=== PATIENT | female | born 1995 | race Two or more races ===

== ENCOUNTER 2020-04-08 12:40 | Emergency (ER) | payer OTHER ==
[~2020-04-08] VITALS: Ht 167.6 cm; Wt 90.9 kg
[2020-04-08 13:56] LABS: BASO % 0 % (0-3); EOS % 0 % (0-3); HEMATOCRIT 47.1 % (36.0-47.0); HEMOGLOBIN 15.2 g/dL (12.0-15.5); LYMPH # 1.3 x10^3/uL (1.0-4.8); LYMPH % 18 % (24-48); MEAN CORPUSCULAR HEMOGLOBIN 26 pg (25-35); MEAN CORPUSCULAR HGB CONC 32 g/dL (31-37); MEAN CORPUSCULAR VOLUME 81 fL (79-100); MONO # 0.3 x10^3/uL (0.0-1.1); MONO % 4 % (0-9); NEUT # 5.7 x10^3uL (1.8-7.7); NEUT % 79 % (31-73); PLATELET COUNT 215 x10^3/uL (140-400); RED BLOOD COUNT 5.79 x10^6/uL (3.50-5.40); RED CELL DISTRIBUTION WIDTH 14.8 % (11.5-14.5); WHITE BLOOD COUNT 7.2 x10^3/uL (4.0-11.0)
--- NOTE | 2020-04-08 13:56 | RAD ---
INDICATION: Reason: covid, soa / Spl. Instructions: / History: COMPARISON: None. FINDINGS: Single view of chest obtained. Cardiac silhouette is unremarkable. No focal airspace consolidation or pulmonary edema. IMPRESSION: * No focal airspace consolidation. Electronically signed by: Ryan Palacio MD (04/08/2020 1:53 PM) [id number]
--- NOTE | 2020-04-08 14:03 | PHYS DOC ---
Adult General Chief Complaint Chief Complaint: SHORTNESS OF BREATH HPI HPI Patient is a 25 year old female who presents with shortness of breath. Patient states she tested positive for the COVID-19 virus on March 31, patient states that she had generalized body aches with loss of smell and loss of taste but started feeling much better approximately 2 days ago. Patient states that this morning when she woke up from bed at approximately 930 this morning she stood up and immediately passed out, patient believes she was only unconscious for less than a minute stating her helped her back up to sit on the bed. Patient also noticed that she shortness of breath and had been unable to catch her breath. Patient states that when she took a deep breath she noticed some chest pain although her chest pain had resolved when she arrived to the emergency department today. Patient also states that this morning she noticed she had hives all over her body that were itching, she states she took 1 capsule of children's Benadryl prior to 10 AM today and did not notice any change in her hives. Patient states that she noticed her upper lip was swollen, but then resolved and noticed her lower lip was swollen when she came to the ER today. Patient denies any throat swelling, itching in her oral cavity, nasal congestio n, cough, denies chest pains at this time, still complains of loss of smell and loss of taste, denies abdominal pain, nausea, vomiting, diarrhea, or constipation. Patient denies any problems urinating, denies vaginal discharge, denies any STI concerns, patient states her last menstrual period was approximately 25 days ago, has had irregular periods since she had her Nexplanon removed 3 months ago. Patient denies headaches, swelling of her glands, depressions, anxieties, homicidal or suicidal ideations. Patient states that her had also tested positive on 31 March but his symptoms have since resolved, patient also states she has 2 young children 1 age 4 and 186 who are not showing any symptoms of the COVID-19 virus or other illnesses. (MADI ROTHMAN APRN) Review of Systems Review of Systems Constitutional: Denies fever or chills Eyes: Denies change in visual acuity, redness, or eye pain HENT: Denies nasal congestion or sore throat Respiratory: Denies cough, complains of shortness of breath. Cardiovascular: Complains of chest pain with deep inspiration that resolved prior to arrival to the ER today. GI: Denies abdominal pain, nausea, vomiting, constipation or diarrhea : Denies dysuria or hematuria, vaginal discharge, STI concerns. Musculoskeletal: Denies back pain or joint pain Integument: Complains of hives all over that itch. Neurologic: Denies headache, focal weakness. Complains of loss of smell and loss of taste. Psychiatric: Patient denies homicidal or suicidal ideation, denies depressions or anxieties. All other systems were reviewed and found to be within normal limits, except as documented in this note. (MADI ROTHMAN APRN) Family History Family History Patient states both her mother and her father are healthy, however she has a 19-year-old brother and a 21-year-old brother with a history of asthma. (MADI ROTHMAN APRN) Current Medications Current Medications Patient denies taking prescription medications. (MADI ROTHMAN APRN) Physical Exam Physical Exam Constitutional: Well developed, well nourished, no acute distress, non-toxic appearance. [] HENT: Normocephalic, atraumatic, bilateral external ears normal, oropharynx moist, no oral exudates, nose normal. [] Eyes: PERRLA, EOMI, conjunctiva normal, no discharge, pupils 4 mm Neck: Normal range of motion, no tenderness, supple, no stridor. [] Cardiovascular:Heart rate regular rhythm, no murmur, heart sounds S1-S2 to auscultation. Lungs & Thorax: Bilateral breath sounds clear to auscultation all lung parkinson. Abdomen: Bowel sounds normal, soft, no tenderness, no masses, no pulsatile masses. [] Skin: Warm, dry, no erythema, patient has urticarial lesions with complaints of pruritus generalized on the trunk and upper extremities with angioedema of the lower lip the urticarial lesions are raised, erythematous plaques with central pallor ranging in size of 1cm to 5 cm irregular cervical patterns without drainage. There are no open lesions of the skin. Back: No tenderness, no CVA tenderness. [] Extremities: No tenderness, no cyanosis, no clubbing, ROM intact, no edema. [] Neurologic: Alert and oriented X 3, normal motor function, normal sensory function, no focal deficits noted. [] Psychologic: Affect normal, judgement normal, mood normal. [] (MADI ROTHMAN APRN) Current Patient Data Lab Results Laboratory Tests Test 04/08/20 13:25 04/08/20 16:14 White Blood Count 7.2 x10^3/uL Red Blood Count 5.79 x10^6/uL Hemoglobin 15.2 g/dL Hematocrit 47.1 % Mean Corpuscular Volume 81 fL Mean Corpuscular Hemoglobin 26 pg Mean Corpuscular Hemoglobin Concent 32 g/dL Red Cell Distribution Width 14.8 % Platelet Count 215 x10^3/uL Neutrophils (%) (Auto) 79 % Lymphocytes (%) (Auto) 18 % Monocytes (%) (Auto) 4 % Eosinophils (%) (Auto) 0 % Basophils (%) (Auto) 0 % Neutrophils # (Auto) 5.7 x10^3uL Lymphocytes # (Auto) 1.3 x10^3/uL Monocytes # (Auto) 0.3 x10^3/uL Eosinophils # (Auto) 0.0 x10^3/uL Basophils # (Auto) 0.0 x10^3/uL Prothrombin Time 10.7 SEC Prothromb Time International Ratio 1.0 Activated Partial Thromboplast Time 25 SEC D-Dimer (Ragini) 7.40 mg/L Sodium Level 138 mmol/L Potassium Level 3.4 mmol/L Chloride Level 104 mmol/L Carbon Dioxide Level 22 mmol/L Anion Gap 12 Blood Urea Nitrogen 13 mg/dL Creatinine 0.8 mg/dL Estimated GFR (Cockcroft-Gault) 86.0 BUN/Creatinine Ratio 16 Glucose Level 119 mg/dL Lactic Acid Level 2.3 mmol/L Calcium Level 8.5 mg/dL Total Bilirubin 0.5 mg/dL Aspartate Amino Transf (AST/SGOT) 14 U/L Alanine Aminotransferase (ALT/SGPT) 18 U/L Alkaline Phosphatase 54 U/L Lactate Dehydrogenase 172 U/L Creatine Kinase 46 U/L Troponin I Quantitative < 0.017 ng/mL C-Reactive Protein 6.2 mg/L XT-Nog-H-Type Natriuretic Peptide 20 pg/mL Total Protein 7.0 g/dL Albumin 3.4 g/dL Albumin/Globulin Ratio 0.9 Lipase 47 U/L Serum Test, Qualitative Negative Urine Collection Type Unknown Urine Color Mary Urine Clarity Clear Urine pH 5.5 Urine Specific [place] 1.010 Urine Protein Neg Urine Glucose (UA) Neg mg/dL Urine Ketones (Stick) Neg mg/dL Urine Blood Trace Urine Nitrite Neg Urine Bilirubin Neg Urine Urobilinogen Dipstick 0.2 mg/dL Urine Leukocyte Esterase Neg Urine RBC 0 /HPF Urine WBC 0 /HPF Urine Squamous Epithelial Cells None /LPF Urine Bacteria 0 /HPF Current Medications Medications (Trade) Dose Ordered Sig/Amarjit Route PRN Reason Start Time Stop Time Status Last Admin Dose Admin Diphenhydramine HCl (Benadryl) 25 mg 1X ONCE IVP 04/08/20 14:30 04/08/20 14:33 DC 04/08/20 14:37 Sodium Chloride 1,000 ml @ 1,000 mls/hr 1X ONCE IV 04/08/20 14:30 04/08/20 15:29 DC 04/08/20 14:35 Dexamethasone Sodium Phosphate (Decadron) 10 mg 1X ONCE IV 04/08/20 14:30 04/08/20 14:33 DC 04/08/20 14:39 Famotidine (Pepcid Vial) 20 mg 1X ONCE IVP 04/08/20 14:30 04/08/20 14:33 DC 04/08/20 14:39 Enoxaparin Sodium (Lovenox 100mg Syringe) 90 mg 1X ONCE SQ 04/08/20 14:50 04/08/20 14:51 DC 04/08/20 15:06 Iohexol (Omnipaque 350 Mg/ml) 100 ml 1X ONCE IV 04/08/20 15:00 04/08/20 15:01 DC 04/08/20 15:12 Info (Do NOT chart on this entry -- for MONITORING) 1 each PRN DAILY PRN MC SEE COMMENTS 04/08/20 15:00 04/10/20 14:59 Laboratory Tests Test 04/08/20 13:25 White Blood Count 7.2 x10^3/uL (4.0-11.0) Red Blood Count 5.79 x10^6/uL (3.50-5.40) H Hemoglobin 15.2 g/dL (12.0-15.5) Hematocrit 47.1 % (36.0-47.0) H Mean Corpuscular Volume 81 fL (79-100) Mean Corpuscular Hemoglobin 26 pg (25-35) Mean Corpuscular Hemoglobin Concent 32 g/dL (31-37) Red Cell Distribution Width 14.8 % (11.5-14.5) H Platelet Count 215 x10^3/uL (140-400) Neutrophils (%) (Auto) 79 % (31-73) H Lymphocytes (%) (Auto) 18 % (24-48) L Monocytes (%) (Auto) 4 % (0-9) Eosinophils (%) (Auto) 0 % (0-3) Basophils (%) (Auto) 0 % (0-3) Neutrophils # (Auto) 5.7 x10^3uL (1.8-7.7) Lymphocytes # (Auto) 1.3 x10^3/uL (1.0-4.8) Monocytes # (Auto) 0.3 x10^3/uL (0.0-1.1) Eosinophils # (Auto) 0.0 x10^3/uL (0.0-0.7) Basophils # (Auto) 0.0 x10^3/uL (0.0-0.2) (MADI ROTHMAN APRN) EKG EKG EKG performed at 1319 by ED nursing staff shows sinus tachycardia without ectopy heart rate 102 bpm, AR interval 0.118, QTc interval 0.445, no ischemia, no STEMI, no coronary syndrome noted, EKG interpreted by ED attending Dr. Gill (MADI ROTHMAN APRN) Radiology/Procedures Radiology/Procedures PROCEDURE: CT ANGIOGRAPHY CHEST Examination: CT ANGIOGRAPHY CHEST History: Reason: ACUTE SHORTNESS OF BREATH, ELEVATED D-DIMER, COVID POSITIVE / Spl. Instructions: stopped inj. during test due to alarm for infiltrate. rescanned / History: Comparison/Correlation: None Findings: Axial images of the chest were obtained according to pulmonary arteriography protocol. The patient was imaged twice due to technical difficulties with the contrast injection. Sagittal and coronal reformatted images were provided. Maximum intensity projection images were provided. Opacification of the pulmonary arterial vasculature is fair. A few nonenlarged superior mediastinal lymph nodes are present. There is aortic morphology is unremarkable. Aorta is not adequately opacified for arteriographic assessment. No pleural effusion or pneumothorax. Bony structures are unremarkable. Visualized upper abdomen is unremarkable. Impression: No PE. Patchy nodular infiltrates which presumably relate to reported history of COVID 19 positivity. PQRS Compliance Statement: One or more of the following individualized dose reduction techniques were utilized for this examination: 1. Automated exposure control 2. Adjustment of the mA and/or kV according to patient size 3. Use of iterative reconstruction technique Electronically signed by: Mat Sharma MD (04/08/2020 3:44 PM) [facility] DICTATED AND SIGNED BY: MAT SHARMA MD DATE: 04/08/20 1544 PROCEDURE: CHEST AP ONLY INDICATION: Reason: covid, soa / Spl. Instructions: / History: COMPARISON: None. FINDINGS: Single view of chest obtained. Cardiac silhouette is unremarkable. No focal airspace consolidation or pulmonary edema. IMPRESSION: * No focal airspace consolidation. Electronically signed by: Jarrett Mayes MD (04/08/2020 1:53 PM) [id number] DICTATED AND SIGNED BY: JARRETT MAYES MD DATE: 04/08/20 1353 CC: TORRES GILL MD; JUSTIN TODD DO ~ (MADI ROTHMAN APRN) Heart Score Risk Factors: Risk Factors: DM, Current or recent (<one month) smoker, HTN, HLP, family history of CAD, obesity. Risk Scores: Risk Factors: DM, Current or recent (<one month) smoker, HTN, HLP, family history of CAD, obesity. (MADI ROTHMAN APRN) Course & Med Decision Making Course & Med Decision Making Pertinent Labs and Imaging studies reviewed. (See chart for details) 25-year-old female patient presents emergency department with complaints of acute onset shortness of breath, syncopal episode this morning, hives with severe itching, status post COVID-19 positive on April 10. The patient was hypotensive with a blood pressure from the right upper extremity per noninvasive blood pressure machine of 88/53, heart rate was 99, her room air saturation was 97%, oral temperature was 98.1. Concerning for an acute pulmonary embolus related to COVID-19 virus infection a work-up was performed. The patient had a elevated D-dimer, she was subsequently given 90 mg of subcutaneous Lovenox under the direction of ED attending Dr. Gill, a PE CAT scan study was performed, radiologist read as no acute PE, however there were consolidations most likely related to her COVID-19 virus diagnosis. The patient's hives were treated with a liter of normal saline, 25 mg of Benadryl IV, 20 mg of IV Pepcid, 10 mg of IV Decadron. Upon reexamination of the patient vital signs are stable blood pressure normalized, patient's hives had resolved, patient had no angioedema of the lower lip, patient states that her shortness of breath has resolved, discussed and offered admission to the hospital related to patient's ongoing coronavirus symptoms, patient refused admission offer, patient states she would rather go home and self isolate, continue to take medications for her hives if they do return. Patient did not complain of headache or neurological symptoms of stroke, patient's syncopal episode most likely related to hypotension, tachycardia, secondary to COVID-19 virus infection. Patient shortness of breath most likely related to COVID-19 infection. Patient's urticaria most likely rel ated to the COVID-19 virus as patient denies any new foods or hygiene products or soaps at home. Upon reexamination of the patient the patient's symptoms have resolved. Patient's potassium was only slightly low at 3.4 will give 20 mg of potassium p.o. prior to discharge. Patient will be sent home with a prescription for Medrol Dosepak, Pepcid, Benadryl, and Zyrtec. Patient gave verbal understanding of home care instructions, strict isolation precautions, strict return to ER precautions, patient had no further questions or concerns, patient discharged home without incident. (MADI ROTHMAN APRN) Course & Med Decision Making The patient was seen and interviewed as well as examined at the bedside. The chart was reviewed. The case was discussed. Agree with the plan of care. (TORRES GILL MD) Dragon Disclaimer Dragon Disclaimer This electronic medical record was generated, in whole or in part, using a voice recognition dictation system. (MADI ROTHMAN APRN) Departure Departure: Impression: Primary Impression: COVID-19 virus infection Additional Impressions: Atypical syncope Low serum potassium Urticaria Allergic reaction Allergic angioedema Shortness of breath Chest pain on respiration Disposition: 01 DC HOME SELF CARE/HOMELESS Condition: IMPROVED Referrals: JUSTIN TDOD DO (PCP) Additional Instructions: You have been tested for or diagnosed with COVID-19. It is an infection caused by a new type of coronavirus. COVID-19 will cause cold-like or mild flu symptoms in most. It can cause more severe symptoms like problems breathing in some. There is no treatment for COVID-19. The body will clear the infection over time. Self-care will help to ease discomfort. Steps to Take: Self-Care Rest as needed. Healthy habits may help you feel better. Steps include: Choose healthy foods including fruits and vegetables. Drink water throughout the day. Get plenty of sleep each night. If you smoke, try to quit. It may ease breathing. Avoid alcohol. Keep Others Healthy The virus can spread to others. Droplets are released every time you sneeze or cough. The droplets can get into the mouth, nose, or eyes of people near you and lead to infection. To lower the chances of spreading COVID-19 to others: Stay at home until your doctor has said it is safe to leave. If you tested positive this will mean staying isolated until both of the following are true: At least 7 days have passed since the start of illness. You are free of fever for at least 72 hours without the use of medicine. During this time: - Avoid public areas, events, or transportation. Do not return to work or school until your doctor has said it is safe to do so. - Call ahead if you need to go to a medical center. Let them know you may have COVID-19. It will help them guide you where to go. They may also ask you to wear a facemask when you come to the office. - If you call for emergency medical services, let them know you may have COVID- 19. While at home: - Try to avoid close contact with others. Stay about 6 feet away. - If possible, spend most of your time in a separate room from others. - Use a face mask if you will be in close contact with others such as sharing a room or vehicle. - Have someone wipe down common surfaces in the home. Use household hot sealing machine operator every day on areas like doorknobs, counters, or sinks. - Cough or sneeze into a tissue. Throw the tissue away right after use. If a tissue is not available, cough or sneeze into your elbow. - Wash your hands often. Wash them after sneezing or coughing. Use soap and water and wash for at least 20 seconds. Alcohol based hand chicken cleaner can be used if soap and water is not available. - Do not prepare food for others. Avoid sharing personal items like forks, spoons, or toothbrushes. - Avoid close contact with pets while you are sick. There is no evidence of the virus passing to pets. This is a safety step until more is known about this virus. Isolation can be frustrating. Social interaction can help. Keep in touch with friends and family through phone and tech options. You can still interact with others in your home, just keep a safe distance of about 6 feet. Follow-up: Your doctors office will check in with you to see if there are any changes in your health. You may be asked to keep track of symptoms to share with them. They will also let you know when you are clear to be in public again. Problems to Look Out For: Contact your doctor if your recovery is not going as you expect. Get emergency care if you have problems such as: - Trouble breathing - Nonstop chest pain or pressure - Changes in awareness, confusion, or problems waking - Lips or face have bluish color - Worsening of symptoms If you think you have an emergency, call for emergency medical services right away. As taken from [facility] Take medications as prescribed, return turn to the ER immediately for increased shortness of breath, or any more syncopal episodes at home, or worsening symptoms, or other concerns. Please self isolate as you have been diagnosed with the COVID-19 virus. Follow-up with your doctor soon. Scripts Famotidine (PEPCID) 20 Mg Tablet 20 MG PO BID for ALLERGY for 7 Days, #14 TAB 0 Refills Prov: MADI ROTHMAN APRN 04/08/20 Cetirizine Hcl (ZYRTEC) 10 Mg Tablet 1 TAB PO DAILY for ALLERGY, #30 TAB 0 Refills Prov: MADI ROTHMAN APRN 04/08/20 Methylprednisolone (MEDROL) 4 Mg Tab.ds.pk 1 PKG PO UD for ALLERGIC REACTION, #1 PKG 0 Refills TAKE PACKAGE DIRECTIONS Prov: MADI ROTHMAN APRN 04/08/20 Diphenhydramine Hcl (BENADRYL) 25 Mg Capsule 25 MG PO PRN TID PRN for ALLERGIES, #20 CAP 0 Refills TAKE UP TO THREE TIMES A DAY FOR ITCHING Prov: MADI ROTHMAN APRN 04/08/20 Problem Qualifiers Additional Impressions: Allergic reaction Encounter type: initial encounter Qualified Codes: T78.40XA - Allergy, unspecified, initial encounter Allergic angioedema Encounter type: initial encounter Qualified Codes: T78.3XXA - Angioneurotic edema, initial encounter MADI ROTHMAN APRN Apr 08, 2020 14:03 TORRES GILL MD Apr 08, 2020 17:55
[2020-04-08 14:09] LABS: PREG TEST PT QUAL NEGATIVE (NEG)
[2020-04-08 14:10] LABS: CALCIUM 8.5 mg/dL (8.5-10.1); CREATININE 0.8 mg/dL (0.6-1.0); POTASSIUM 3.4 mmol/L (3.5-5.1)
--- NOTE | 2020-04-08 14:15 | EKG ---
[address] [address] Test Date: 2020-04-08 Test Time: 13:19:11 Pat Name: NAYE RUSSELL Department: Room: Gender: F Master Welder: ANA : 1975-03-29 Requested By: TORRES GILL Order Number: [id number] Reading MD: Measurements Intervals [place] Rate: 102 P: 62 WV: 118 QRS: 59 QRSD: 80 T: 23 QT: 338 QTc: 445 Interpretive Statements SINUS TACHYCARDIA R-S TRANSITION ZONE IN V LEADS DISPLACED TO THE RIGHT INCOMPLETE RIGHT BUNDLE BRANCH BLOCK OTHERWISE NORMAL ECG RI6.02 No previous ECG available for comparison
[2020-04-08 14:22] LABS: ALBUMIN 3.4 g/dL (3.4-5.0); ALBUMIN/GLOBULIN RATIO 0.9 (1.0-1.7); C REACTIVE PROTEIN 6.2 mg/L (0-3.3); TOTAL BILIRUBIN 0.5 mg/dL (0.2-1.0)
[2020-04-08] MEDS ORDERED: IV NORMAL SALINE 1,000ML 1,000 ML IV ONE (14:30)
[2020-04-08] MEDS ORDERED: FAMOTIDINE 20 MG/2 ML VIAL IVP ONE (14:30)
[2020-04-08] MEDS ORDERED: diphenhydrAMINE 50 MG/ML VIAL IVP ONE (14:30)
[2020-04-08] MEDS ORDERED: DEXAMETHASONE SOD PHOS 10 MG/ML VIAL. IV ONE (14:30)
[2020-04-08] MEDS ORDERED: ENOXAPARIN ** NOTE DOSE ** SYRINGE SQ ONE (14:50)
[2020-04-08] MEDS ORDERED: IOHEXOL 350 MG/ML 100 ML VIAL. IV ONE (15:00)
[2020-04-08] MEDS ORDERED: CONTRAST GIVEN. MC PRN (15:00)
--- NOTE | 2020-04-08 15:47 | RAD ---
Examination: CT ANGIOGRAPHY CHEST History: Reason: ACUTE SHORTNESS OF BREATH, ELEVATED D-DIMER, COVID POSITIVE / Spl. Instructions: stopped inj. during test due to alarm for infiltrate. rescanned / History: Comparison/Correlation: None Findings: Axial images of the chest were obtained according to pulmonary arteriography protocol. The patient was imaged twice due to technical difficulties with the contrast injection. Sagittal and coronal reformatted images were provided. Maximum intensity projection images were provided. Opacification of the pulmonary arterial vasculature is fair. A few nonenlarged superior mediastinal lymph nodes are present. There is aortic morphology is unremarkable. Aorta is not adequately opacified for arteriographic assessment. No pleural effusion or pneumothorax. Bony structures are unremarkable. Visualized upper abdomen is unremarkable. Impression: No PE. Patchy nodular infiltrates which presumably relate to reported history of COVID 19 positivity. PQRS Compliance Statement: One or more of the following individualized dose reduction techniques were utilized for this examination: 1. Automated exposure control 2. Adjustment of the mA and/or kV according to patient size 3. Use of iterative reconstruction technique Electronically signed by: Mat Toure MD (04/08/2020 3:44 PM) [facility]
[2020-04-08 16:50] LABS: BILIRUBIN,URINE NEG (NEG); CLARITY,URINE CLEAR; COLOR,URINE AMBER; GLUCOSE,URINE NEG (NEG); NITRITE,URINE NEG (NEG); UROBILINOGEN,URINE 0.2 mg/dL (0.2 mg/dL)
[2020-04-08 16:51] LABS: BACTERIA,URINE 0 /HPF (0-FEW); RBC,URINE 0 /HPF (0-2); WBC,URINE 0 /HPF (0-4)
[2020-04-08] MEDS ORDERED: METH4TAB2 PO (17:30)
[2020-04-08] MEDS ORDERED: POTASSIUM CHLORIDE 20 MEQ TABLET.ER. PO ONE (17:30)
[2020-04-08] MEDS ORDERED: FAMO-63 PO (17:30)
[2020-04-08] MEDS ORDERED: CETI10TA74 PO (17:30)
[2020-04-08] MEDS ORDERED: DIPH25CA58 PO (17:30)
[2020-04-08 17:38] VITALS: BP 95/58
== END 2020-04-08 17:41 | disposition home or self-care (01) ==
LOC: EDBD 12:40 → ER 12:40
DX: T78.40XA Allergy, unspecified, initial encounter (principal); T78.3XXA Angioneurotic edema, initial encounter; U07.1 COVID-19; R55 Syncope and collapse; R07.1 Chest pain on breathing; X58.XXXA Exposure to other specified factors, initial encounter
CPT/HCPCS: 36415; 71045; 71275; 80053; 81001; 82550; 83605; 83615; 83690; 83880; 84484; 84703; 85025; 85379; 85610; 85730; 86140; 87040; 93005; 96361; 96372; 96374; 96375; 99285; J1100; J1200; J1650; J3490; J7030; Q9967